=== PATIENT | female | born 1990 | race Caucasian/White ===

== ENCOUNTER 2017-01-19 17:58 | Emergency (ER) | payer OTHER ==
[~2017-01-19] VITALS: Ht 152.4 cm; Wt 40.8 kg
[2017-01-19 17:58] VITALS: BP 119/74; PULSE 85; RESP 14; TEMP 100.1; O2SAT 97
--- NOTE | 2017-01-19 17:58 | NUR ---
Patient to ER bed 7 to gown for evaluation. Side rails up. Report given to KOSTA Tavarez.
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
--- NOTE | 2017-01-19 18:10 | NUR ---
Dr. Fuentes at bedside.
[2017-01-19] MEDS ORDERED: ACETAMINOPHEN/CODEINE 300 MG-30 MG TABLET PO ONE (18:15)
--- NOTE | 2017-01-19 19:17 | NUR ---
Patient awaiting her parents to pick her up. Parents are driving from [place] and are due to [facility] @ 11:30pm. Patient is discharged to the waiting room waiting her ride.
[2017-01-19 19:18] VITALS: BP 121/71; PULSE 83; RESP 17; TEMP 98.8; O2SAT 98
--- NOTE | 2017-01-19 19:18 | NUR ---
Patient given written and verbal discharge instructions and verbalizes understanding. ROSALBA Fuentes discussed with patient the results and treatment provided. Patient in stable condition. ID arm band removed. Rx of tramadol given. Patient educated on pain management and to follow up with PMD. Pain Scale 0/10. Opportunity for questions provided and answered. Patient awaiting for her ride in the waiting room.
== END 2017-01-19 19:18 | disposition home or self-care (01) ==
LOC: SED 17:58
DX: S46.812A Strain of other muscles, fascia and tendons at shoulder and upper arm level, left arm, initial encounter (principal); Z88.6 Allergy status to analgesic agent; Z88.8 Allergy status to other drugs, medicaments and biological substances; V49.9XXA Car occupant (driver) (passenger) injured in unspecified traffic accident, initial encounter; Y93.89 Activity, other specified; Y92.488 Other paved roadways as the place of occurrence of the external cause; Y99.8 Other external cause status
CPT/HCPCS: 73010-TC; 99284

== ENCOUNTER 2017-01-19 22:30 | Emergency (ER) | payer OTHER ==
[~2017-01-19] VITALS: Ht 152.4 cm; Wt 45.4 kg
[2017-01-19 22:30] VITALS: BP_SYST 145
[2017-01-20 00:58] VITALS: BP_SYST 138
== END 2017-01-20 00:58 | disposition home or self-care (01) ==
LOC: SED 22:30
DX: S16.1XXD Strain of muscle, fascia and tendon at neck level, subsequent encounter (principal); Z88.6 Allergy status to analgesic agent; Z88.8 Allergy status to other drugs, medicaments and biological substances; V89.0XXD Person injured in unspecified motor-vehicle accident, nontraffic, subsequent encounter
CPT/HCPCS: 99281